=== PATIENT | male | born 1930 | race Caucasian/White ===

== ENCOUNTER → 2016-11-16 | Day surgery (SDC) | payer MEDICARE, BC ==
[~2016-11-16] MED LIST: ALBUTEROL17 GM INH; ASPIRINEC PO; CLEOCIN PO; DONEPEZIL HCL10 MG PO; FLOMAX0.4 M1 PO; LIPITOR PO; PANTOPRAZOLE SO40 MG PO; PLAVIX PO; SIMVASTATIN40 MG PO; TOPROL XL PO
--- NOTE | ~2016-11-16 | OR ---
Unit #: [id number] #: [id number] Patient: AAMURI MUNIZ [id number] [place], [place] [address] [id number] O MR#: [id number] NAME: AMAURI MUNIZ. ROOM: Date of Procedure: 11/16/2016 Admission Date: 11/16/2016 Surgeon: Kimo Coles M.D. : 1930 Attending Physician: Kimo Coles M.D. Referring Physician: Kimo Coles M.D. Primary Care Physician: Sydnie Snowden A.P.R.N. OPERATIVE REPORT PREOPERATIVE DIAGNOSES The patient presents with history of dysphagia, has background history of achalasia, status post remote balloon dilation with a 30 mm balloon more than 8 to10 years ago. Since then, he has been managed with intermittent Botox injection. He presents with history of dysphagia, but more so even when he is not eating, he is feeling of fullness in the lowers esophagus. PROCEDURES PERFORMED Upper gastrointestinal endoscopy and Botox injection. POSTOPERATIVE DIAGNOSES 1. 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 Full of solid food material, which was persistently present. 2. The distal esophagus surprising appeared quite normal. There being no narrowing nor any stricture. Four injections of Botox 25 units each of the 4 quadrants of the LES was made. Although, we tried to remove some of the debris from the diverticulum. It was so packed with food material that any intervention in this area is fraught with high risk of perforation. RECOMMENDATIONS The patient is an 85, is not a candidate for surgery for a diverticulum. Therefore, supportive treatment and reassurance is needed. He was advised to eat at least 2 to 3 hours before dinner. He was advised to eat at least 2 to 3 hours before the nap time. In addition, he was advised to use Ensure or boost as the last meal of the day after the dinner time. He will continue on pantoprazole daily. He will be followed up in the office in 3 months' time. SEDATION USED MAC. DESCRIPTION OF PROCEDURE Following detailed explanation of potential risks and complications of an upper endoscopy, namely perforation, bleeding, and complications related to sedation, the patient was brought to GI lab and laid in the left lateral decubitus position. Lubricated tip of the Olympus video upper endoscope was passed through the bite block into the proximal esophagus under direct vision. The entire esophageal mucosa was examined. This had the appearance of a double barrel tube in the distal esophagus with a large diverticulum full of necrotic debris and solid food material. The actual lumen of the esophagus appeared quite normal with normal Unit #: [id number] #: [id number] Patient: AMAURI MUNIZ gastroesophageal junction and no evidence of stricture or esophagitis. The scope was then advanced in the gastric cavity and the latter was insufflated. Mucosa of the fundus, body, and antrum was examined and appeared unremarkable. Pylorus was intubated with visualization of the normal duodenal bulb and second and third part of the duodenum. Upon withdrawal and retroflexion, incisura, cardia, and greater curve examined and no additional findings noted. The scope was withdrawn in the distal esophagus. Four quadrant injections of Botox were made, 25 units each of the 4 quadrants of distal esophagus just above the Z-line. Careful inspection was made of the opening of the diverticulum and some of the rotting food material was removed using biopsy forceps; however, the mere size of the diverticulum will make it impossible to do this endoscopically and it is likely to fill up anyway. There is also high risk of perforation due to instrumentation in this area. The scope was then withdrawn all the way up to pharynx. No additional findings noted. The patient tolerated the procedure without any postprocedure complications. Dictated by... Terrence Pizarro/mauricio TD: 11/17/2016 03:49 JOB #: [id number] OPERATIVE REPORT Page 1 of 1 X Kimo Coles MD X PROCEDURE OPERATIVE NOTE
== END | disposition home or self-care (01) ==
LOC: COPS 11:57
DX: Q39.6 Congenital diverticulum of esophagus (principal); T18.128A Food in esophagus causing other injury, initial encounter; I10 Essential (primary) hypertension; J44.9 Chronic obstructive pulmonary disease, unspecified; Z85.46 Personal history of malignant neoplasm of prostate; Z87.891 Personal history of nicotine dependence; Z79.82 Long term (current) use of aspirin; Z79.899 Other long term (current) drug therapy; Z98.890 Other specified postprocedural states; X58.XXXA Exposure to other specified factors, initial encounter
CPT/HCPCS: J0585